=== PATIENT | female | born 1975 | race Caucasian/White ===

== ENCOUNTER 2019-08-11 17:09 | Emergency (ER) | payer OTHER ==
[~2019-08-11] VITALS: Ht 167.6 cm; Wt 108.0 kg
[2019-08-11 17:42] VITALS: Ht 167.6 cm; Wt 108.0 kg
[2019-08-11 20:13] VITALS: BP 108/62
== END 2019-08-11 20:13 | disposition home or self-care (01) ==
LOC: ED 17:09
DX: I80.3 Phlebitis and thrombophlebitis of lower extremities, unspecified (principal); Z98.890 Other specified postprocedural states; Z88.1 Allergy status to other antibiotic agents
CPT/HCPCS: Q0092